=== PATIENT | male | born 1950 | race Caucasian/White ===

== ENCOUNTER → 2017-11-10 12:32 | Outpatient (CLI) | payer MEDICARE, SELFPAY ==
[2017-11-10 13:44] LABS: Prostate Specific Ag Screen 0.9 ng/mL (0.0-4.0)
== END ==
PROVIDERS: Visit Provider Urology
DX: Z12.5 Encounter for screening for malignant neoplasm of prostate (principal); N40.0 Benign prostatic hyperplasia without lower urinary tract symptoms
CPT/HCPCS: 36415; G0103

== ENCOUNTER → 2018-11-09 12:00 | Outpatient (CLI) | payer MEDICARE, SELFPAY ==
[2018-11-09 18:22] LABS: Prostate Specific Ag, Diagnost 0.82 ng/mL (0.0-4.0)
== END ==
PROVIDERS: Visit Provider Urology
DX: Z12.5 Encounter for screening for malignant neoplasm of prostate (principal); N52.9 Male erectile dysfunction, unspecified; N40.0 Benign prostatic hyperplasia without lower urinary tract symptoms
CPT/HCPCS: 36415; 84153

== ENCOUNTER → 2019-11-15 12:20 | Outpatient (CLI) | payer MEDICARE, SELFPAY ==
[2019-11-15 15:05] LABS: Prostate Specific Ag Screen 0.9 ng/ml (0.0-4.0)
== END ==
PROVIDERS: Visit Provider Urology
DX: Z12.5 Encounter for screening for malignant neoplasm of prostate (principal)
CPT/HCPCS: 36415; G0103

== ENCOUNTER → 2020-01-06 09:46 | Outpatient (CLI) | payer MEDICARE, SELFPAY | PROVIDERS: PCP Family Medicine; Visit Provider Family Medicine | DX: R00.2 Palpitations (principal); R41.0 Disorientation, unspecified; R47.01 Aphasia | CPT/HCPCS: 93270 ==

== ENCOUNTER → 2020-01-09 14:39 | Outpatient (CLI) | payer MEDICARE, SELFPAY ==
[2020-01-09 16:24] LABS: Blood Urea Nitrogen 11 mg/dl (9-20); Estimated Glomerular Filt Rate 83 ml/min (>60); GFR (African American) 101 ML/MIN (>60)
== END ==
PROVIDERS: Visit Provider Family Medicine
DX: Z01.818 Encounter for other preprocedural examination (principal)
CPT/HCPCS: 36415; 82565; 84520

== ENCOUNTER → 2020-01-12 12:15 | Outpatient (CLI) | payer MEDICARE, SELFPAY ==
--- NOTE | 2020-01-12 12:19 | MR_ITS ---
PROCEDURE: MR HEAD/BRAIN WO/W CON CLINICAL INDICATION: APHASIA HX PITUITARY GLAND TUMOR REMOVED 2010. HX RADIATION. EPISODES OF ZONING OUT NOT ABLE TO SPEAK. COMPARISON: MR [facility] MRI-BRAIN W/WO from 03/12/2016 TECHNIQUE: Routine multiplanar multi echo sequences are performed without and with gadolinium enhancement. FINDINGS: No midline shift, mass effect, intracranial hemorrhage, or hydrocephalus is evident. There is generalized atrophy with nonspecific periventricular and basal ganglia T2 hyperintensities. The cerebellopontine angles, cerebellum, and brainstem have an unremarkable appearance. No evidence of acute infarction. The sella turcica is enlarged as before with postsurgical changes. No enhancing lesions are evident. No mastoid effusion or sinus air-fluid level. IMPRESSION: No change with no acute intracranial findings. Postsurgical changes with enlargement of the sella turcica. Dictated by: Mc Bautista MD 01/13/2020 12:29 Mc Bautista MD in [place] 01/13/2020 12:29
== END ==
PROVIDERS: PCP Family Medicine; Visit Provider Family Medicine
DX: R47.01 Aphasia (principal)
CPT/HCPCS: 70553; A9576

== ENCOUNTER → 2020-07-02 15:03 | Outpatient (CLI) | payer MEDICARE, SELFPAY ==
[2020-07-02 15:30] LABS: Basophils % 0.5 % (0.1-2.0); Eosinophils # 0.1 K/mm3 (0.0-0.4); Eosinophils % 0.9 % (0.1-12.0); Hematocrit 52.6 % (42.0-52.0); Hemoglobin 17.5 g/dL (14.1-18.0); Lymphocytes # 1.1 K/mm3 (0.7-4.5); Lymphocytes % 14.2 % (10-50); Mean Corpuscular HGB Conc 33.3 g/dL (31.8-35.4); Mean Corpuscular Hemoglobin 30.8 pg (27.0-31.2); Mean Corpuscular Volume 92.4 fl (80-94); Mean Platelet Volume 7.8 fl (7.4-10.4); Monocytes # 0.3 K/mm3 (0.1-1.0); Monocytes % 3.8 % (1.7-9.3); Neutrophils # 6.3 K/mm3 (1.8-7.8); Neutrophils % 80.7 % (37.0-80.0); Platelet Count 211 K/mm3 (142-424); Red Blood Count 5.69 M/mm3 (4.60-6.20); Red Cell Distribution Width 13.8 % (11.5-17.5); White Blood Count 7.7 K/mm3 (4.8-10.8)
[2020-07-02 21:37] LABS: Chloride 105 mmol/L (98-107); Sodium 138 mmol/L (136-145)
[2020-07-02 21:38] LABS: Potassium 4.7 mmoL/L (3.5-5.1)
[2020-07-02 21:40] LABS: Alanine Aminotransferase 17 U/L (12-78); Albumin Level 4.5 g/dl (3.5-5.0); Albumin/Globulin Ratio 1.7 (1.1-1.8); Alkaline Phosphatase 59 U/L (38-126); Anion Gap 12.7 mEq/L (5-15); Aspartate Amino Transferase 22 U/L (17-59); Bilirubin,Total 0.7 mg/dl (0.2-1.3); Blood Urea Nitrogen 11 mg/dl (9-20); Carbon Dioxide 25 mmol/L (22.0-30.0); Estimated Glomerular Filt Rate 95 ml/min (>60); GFR (African American) 115 ML/MIN (>60); Globulin 2.6 g/dL (1.3-3.2); Total Protein,Serum 7.1 g/dl (6.3-8.2)
[2020-07-02 21:41] LABS: Calcium 9.3 mg/dl (8.4-10.2); Glucose 110 mg/dl (74-100)
[2020-07-02 21:57] LABS: Free T4 (Free Thyroxine) 1.16 ng/dl (0.78-2.19)
[2020-07-07 18:14] LABS: Testosterone, Total, LC/MS 346.6 ng/dL (264.0-916.0); Testosterone,Free 2.6 pg/mL (6.6-18.1)
== END ==
PROVIDERS: Visit Provider Internal Medicine Endocrinology, Diabetes & Metabolism
DX: D35.2 Benign neoplasm of pituitary gland (principal)
CPT/HCPCS: 36415; 80053; 84402; 84403; 84439; 85025

== ENCOUNTER → 2020-11-20 11:47 | Outpatient (CLI) | payer MEDICARE, SELFPAY ==
[2020-11-20 14:20] LABS: Prostate Specific Ag Screen 1.1 ng/ml (0.0-4.0)
== END ==
PROVIDERS: Visit Provider Urology
DX: Z12.5 Encounter for screening for malignant neoplasm of prostate (principal)
CPT/HCPCS: 36415; G0103

== ENCOUNTER 2023-04-22 12:21 | Emergency (ER) | payer MEDICARE, SELFPAY ==
--- NOTE | 2023-04-22 12:23 | XR_ITS ---
FINAL REPORT CLINICAL HISTORY: Right knee pain COMPARISON: None FINDINGS: Three views of the right knee were obtained. There is no acute fracture or dislocation. There are small osteophytes along the undersurface of the patella. There is sharpening of the tibial spines. There is no soft tissue abnormality. IMPRESSION: Mild changes of osteoarthritis without acute fracture Reviewed, Interpreted and Dictated by Brendon Hoffman MD Transcribed by Sera Thurman Authenticated and [facility]
[2023-04-22 12:40] VITALS: BP 139/88; PULSE 78; RESP 19; TEMP 36.8; O2SAT 98; BMI 42.7
--- NOTE | 2023-04-22 13:00 | ED_ITS ---
Discharge Plan Disposition Patient Disposition: Home, Self-Care Condition: Good Prescriptions Prescriptions: No Action testosterone 30 mg/actuation (1.5 mL) solution in metered pump w/juan 3 applic TOPICAL DAILY hydrocortisone 10 mg tablet 10 mg PO TID aspirin [Adult Aspirin Regimen] 81 mg tablet,delayed release (DR/EC) 81 mg PO DAILY levothyroxine 75 mcg capsule 75 mcg PO DAILY levetiracetam 750 mg tablet 750 mg PO BID Referrals Follow up/Referrals: Anthony Chan MD [Primary Care Provider] - See instructions Activity Restrictions/Add. Instructions Additional Instructions/Restrictions: *weight bearing as tolerated *Elevate when resting? *Ibuprofen 600-800mg every 6-8 hours as needed for pain an inflammation if you can take it. If need something more can take Tylenol in between doses of Ibuprof en to help Immediately follow up with your family doctor for new or worsening of symptoms, or no noticeable improvement over the next 3-5 days for further testing and evaluation Clinical Impressions Clinical Impression: Knee pain Qualifiers: Chronicity: unspecified Laterality: right Qualified Code(s): M25.561 - Pain in right knee Instructions Patient Instructions: DI for Knee Pain Discharge ED Provider: Gabby Ross [facility] General Stated complaint: right knee pain Mode of Arrival: Ambulatory Source of Information: Patient Limitations: No Limitations Time Seen by Provider: 04/22/23 13:00 Description of Symptoms (Recalled from Triage Doc. by RN): PATIENT C/O PAIN TO RIGHT KNEE X 2 DAYS, NO KNOWN INJURY HEENT Symptoms (Recalled from RN notes): No Resp Symptoms (Recalled from RN notes): No Skin Symptoms (Recalled from RN notes): No MS Symptoms (Recalled from RN notes): Yes Functional Status (Recalled from RN notes): WNL History of Present Illness Provider Complaint: Patient states that he woke up a couple days ago having pain in his right knee when he would walk States that he is able to move and bend the leg without pain but when he walks his knee hurts so today he came in to get it checked Related Data Home Medications Medication Instructions Recorded Confirmed levothyroxine 75 mcg capsule 75 mcg PO DAILY 11/10/17 04/22/23 aspirin 81 mg tablet,delayed 81 mg PO DAILY 11/20/20 04/22/23 release (Adult Aspirin Regimen) hydrocortisone 10 mg tablet 10 mg PO TID 11/20/20 04/22/23 testosterone 30 mg/actuation (1.5 3 applic topical DAILY 11/20/20 04/22/23 mL) transderm solution metered pump levetiracetam 750 mg tablet 750 mg PO BID 10/09/21 04/22/23 Allergies Allergy/AdvReac Type Severity Reaction Status Date / Time No Known Allergies Allergy Verified 12/03/21 15:41 Worker's Comp Is this a Worker's Comp case?: No [facility] Disclaimer: The information contained in this section may have been updated after the patient was seen, as this information can be updated by other users. Medical History (Updated 04/22/23 @ 14:24 by Gabby Ross APRN) BPH (benign prostatic hyperplasia) BPH (benign prostatic hyperplasia) Social History Smoking Status: Never smoker alcohol intake: never substance use type: denies use current occupational status: retired Travel in the last 8 weeks: None household members: spouse housing: house ROS Obtained: Yes All systems reviewed & no additional complaints except as documented and Yes Systems reviewed as appropriate & no additional complaints except as documented ENT Ears, Nose, Mouth, and Throat: Reports system reviewed and no additional complaints, except as documented and Reports as per HPI Cardiovascular Cardiovascular: Reports system reviewed and no additional complaints, except as documented and Reports as per HPI Respiratory Respiratory: Reports system reviewed and no additional complaints, except as documented and Reports as per HPI Gastrointestinal Gastrointestingal: Reports system reviewed and no additional complaints, except as documented Musculoskeletal Musculoskeletal: Reports system reviewed and no additional complaints, except as documented, Reports as per HPI and Reports other Comments: Pain in right knee with walking x 2 days denies known injury Physical Exam General General appearance: alert and in no apparent distress ENT ENT exam: Present mucous membranes moist Respiratory Respiratory exam: Present normal lung sounds bilaterally; Absent respiratory distress or wheezes Cardiovascular Cardiovascular exam: Present regular rate, normal rhythm and normal heart sounds Expanded Lower Extremity Exam Right: Knee exam: Absent tenderness, swelling, ecchymosis or erythema Lower leg exam: Present normal inspection Ankle exam: Present normal inspection Neurological Exam Neurological exam: Present alert, oriented X3 and normal gait Medical Decision Making Dinesh Inquiry Pt receiving controlled substance: No Dinesh was queried for this patient: No Vital Signs: 04/22/23 12:40 Temperature 98.3 F Temperature Source Oral Pulse Rate [Left Brachial] 78 Respiratory Rate 19 Blood Pressure [Left Arm] 139/88 Blood Pressure Mean [Left Arm] 105 Blood Pressure Source [Left Arm] Automatic Cuff Blood Pressure Position [Left Arm] Sitting 02 Sat by Pulse Oximetry 98 Oxygen Delivery Method Room Air Lab Data Lab results reviewed: Yes I reviewed the patient's lab results. Orders (Tests/Meds): ORDERS Category Date Time Status XR knee RT 3V Stat Exams 04/22/23 12:23 Taken Radiology Data #1: Image(s): Knee Image Reviewed: Yes I have reviewed radiologist's interpretation Mild changes of oseoarthritis without acute fracture
[2023-04-22 14:20] LABS: Uric Acid 5.8 mg/dl (3.5-8.5)
[2023-04-22 14:24] VITALS: BP 139/88; PULSE 78; RESP 19; TEMP 36.8; O2SAT 98
== END 2023-04-22 14:29 | disposition home or self-care (01) ==
PROVIDERS: Emergency Provider Nurse Practitioner; PCP Family Medicine
DX: M25.561 Pain in right knee (principal)
CPT/HCPCS: 73562; 84550; 99204; 99212; G0463

== ENCOUNTER 2024-11-22 22:11 | Emergency (ER) | payer MEDICARE, SELFPAY ==
--- OUTSIDE RECORDS SUMMARY | 2024-10-05 15:45 | XMS_ITS | Encounter Summary ---
[facility] Address [address] [place] [address] Care Team Providers Care Cut Off Worker Name Role Phone Anthony Chan MD Primary Care Provider + Reason for Visit * Reason Comments Pituitary Problem Hypopituitarism Hypogonadism Hypogonadotropic Hypothyroidism Acquired Encounter Details Date Type Department Care Team (Late st Contact Info) Description 10/05/2024 3:45 PM EDT Office Visit [facility] [address] [phone] Callum Cole MD [address] [address] Hypopituitarism (Primary Dx); Acquired hypothyroidism; Hypogonadotropic hypogonadism Social History Tobacco Use Types Packs/Day Years Used Date Smoking Tobacco: Never Passive Smoke Exposure: Never Smokeless Tobacco: Never Tobacco Cessation:Counseling Given: No Alcohol Use Standard Drinks/Week Comments No 0 (1 standard drink = 0.6 oz pur e alcohol) PHQ-2 Answer Date Recorded Retired PHQ-9: Brief Depression Severity Measure Score 0 05/20/2022 PHQ-2 Answer Date Recorded Patient Health Questionnaire-2 Score 1 08/23/2024 Sex and Gender Information Value Date Recorded Sex Assigned at Not on file Legal Sex Male 1:19 PM EDT Gender Identity Not on file Sexual Orientation Not on file documented as of this encounter Last Filed Vital Signs Vital Sign Reading Time Taken Comments Blood Pressure 124/80 10/05/2024 3:35 PM EDT Pulse 90 10/05/2024 3:35 PM EDT Temperature - - Respiratory Rate - - Oxygen Saturation 97% 10/05/2024 3:35 PM EDT Inhaled Oxygen Concentration - - Weight 131 kg (288 lb) 10/05/2024 3:35 PM EDT Height 177.8 cm (5' 10 ) 10/05/2024 3:35 PM EDT Body Mass Index 41.32 10/05/2024 3:35 PM EDT documented in this encounter Progress Notes * Callum Cole MD - 10/05/2024 4:09 PM EDTAssociated Problem(s): Hypopituitarism Continue hydrocortisone therapy. We discussed sick day rules today. We discussed wearing medicalert jewelry. Check CMP, PRL, IGF-1 today. * Callum Cole MD - 10/05/2024 4:07 PM EDTAssociated Problem(s): Hypogonadotropic hypogonadism Continue topical testosterone. Check T levels today. Controlled substance agreement was signed today. * Callum Cole MD - 10/05/2024 4:07 PM EDTAssociated Problem(s): Acquired hypothyroidism Continue levothyroxine. Check free T4 today. TSH isn't reliable due to pituitary disease. * Callum Cole MD - 10/05/2024 3:45 PM EDT Images from the original note were not included. Office Note Date: 10/05/2024 Patient Name: Laurent Man : 1950 Chief Complaint Patient presents with Pituitary Problem Hypopituitarism Hypogonadism Hypogonadotropic Hypothyroidism Acquired History of Present Illness: Laurent Man is a 74 y.o. male who presents for Pituitary Problem (Hypopituitarism), Hypogonadism (Hypogonadotropic), and Hypothyroidism (Acquired) He remains on the topical testosterone. He is using 6 squirts topically (axillary) daily. Weight has been stable. Energy level is okay. He denies any urinary complaints. He denies any cardiovascular complaints. He remains on the T4 88mcg qd. He is taking this correctly. He isn't taking any interfering meds concurrently. He denies any sxs of hypo- or hyperthyroidism at this time. He remains on hydrocortisone 20mg AM and 10mg PM. He has felt okay on this. He denies any orthostatic sxs. Pituitary tumor - s/p TSH 03/09; s/p XRT 06/08 Subjective Review of Systems: Review of Systems Constitutional: Negative. Cardiovascular: Negative. Gastrointestinal: Negative. Endocrine: Negative. The following portions of the patient's history were reviewed and updated as appropriate: allergies, current medications, past family history, past medical history, past social history, past surgicalhistory, and problem list. Objective Visit Vitals BP 124/80 (BP Location: Left arm, Patient Position: Sitting, Cuff Size: Adult) Pulse 90 Ht 177.8 cm (70 ) Wt 131 kg (288 lb) SpO2 97% BMI 41.32 kg/m?? Physical Exam: Physical Exam Constitutional: Appearance: Normal appearance. Neurological: Mental Status: He is alert. Labs: TSH No results found for: TSHBASE Free T4 Free T4 Date Value Ref Range Status 09/09/2023 1.12 0.92 - 1.68 ng/dL Final T3 No results found for: P4RVUOX TPO No results found for: THYROIDAB TG AB No results found for: THGAB TG No results found for: THYROGLB CBC w/DIFF Lab Results Component Value Date WBC 8.32 09/09/2023 RBC 6.23 (H) 09/09/2023 HGB 18.1 (H) 09/09/2023 HCT 53.6 (H) 09/09/2023 MCV 86.0 09/09/2023 MCH 29.1 09/09/2023 MCHC 33.8 09/09/2023 RDW 14.2 09/09/2023 RDWSD 43.7 09/09/2023 MPV 10.9 09/09/2023 PLT 239 09/09/2023 NEUTRORELPCT 68.1 03/17/2017 LYMPHORELPCT 21.1 (L) 03/17/2017 MONORELPCT 8.8 03/17/2017 EOSRELPCT 1.6 03/17/2017 BASORELPCT 0.2 03/17/2017 AUTOIGPER 0.2 03/17/2017 NEUTROABS 5.92 03/17/2017 LYMPHSABS 1.84 03/17/2017 MONOSABS 0.77 03/17/2017 EOSABS 0.14 03/17/2017 BASOSABS 0.02 03/17/2017 AUTOIGNUM 0.02 03/17/2017 NRBC 0.0 03/17/2017 Assessment / Plan Assessment & Plan: Diagnoses and all orders for this visit: 1. Hypopituitarism (Primary) Assessment & Plan: Continue hydrocortisone therapy. We discussed sick day rules today. We discussed wearing [employer] jewelry. Check CMP, PRL, IGF-1 today. Orders: - Comprehensive Metabolic Panel; Future - Insulin-like Growth Factor; Future - Prolactin; Future 2. Acquired hypothyroidism Assessment & Plan: Continue levothyroxine. Check free T4 today. TSH isn't reliable due to pituitary disease. Orders: - CBC (No Diff); Future - T4, Free; Future 3. Hypogonadotropic hypogonadism Assessment & Plan: Continue topical testosterone. Check T levels today. Controlled substance agreement was signed today. Orders: - Testosterone Free MS / Dialysis; Future Current Outpatient Medications Medication Instructions aspirin 81 mg, Daily BLACK ELDERBERRY PO Take by mouth. 1 po daily hydrocortisone (CORTEF) 10 MG tablet TAKE 2 TABLETS IN THE MORNING AND 1 TABLET IN THE EVENING levothyroxine (SYNTHROID, LEVOTHROID) 88 mcg, Oral, Daily Testosterone 120 mg, Other, Daily, Use 6 squirts topically daily. MUST KEEP APPOINTMENT FOR ADDITIONAL REFILLS Return in about 6 months (around 04/07/2025) for Recheck with CMP, free T4, testo. Electronically signed by: Callum Cole MD 10/05/2024 documented in this encounter Plan of Treatment Upcoming Encounters Date Type Department Care Team (Late st Contact Info) Description 02/27/2025 10:00 AM EST Office Visit [facility] [address] [place] [id number] Anthony Chan MD [address] [place] [address] 06/02/2025 11:30 AM EST Office Visit [facility] [address] [facility] [address] [place] [phone] Callum Cole MD [address] [facility] [address] [place] [address] documented as of this encounter Procedures Procedure Name Priority Date/Time Associated Diagnosis Comments TESTOSTERONE FREE MS/DIALYSIS Routine 10/05/2024 4:12 PM EDT Hypogonadotropic hypogonadism PROLACTIN Routine 10/05/2024 4:12 PM EDT Hypopituitarism INSULIN-LIKE GROWTH FACTOR Routine 10/05/2024 4:12 PM EDT Hypopituitarism CBC (NO DIFF) Routine 10/05/2024 4:12 PM EDT Acquired hypothyroidism T4, FREE Routine 10/05/2024 4:12 PM EDT Acquired hypothyroidism COMPREHENSIVE METABOLIC PANEL Routine 10/05/2024 4:12 PM EDT Hypopituitarism documented in this encounter Results * Prolactin (10/05/2024 4:12 PM EDT) Prolactin 12.20 4.04 - 15.20 ng/mL 10/06/2024 2:12 AM EDT [facility] Blood Venipuncture / Unknown 10/05/2024 4:12 PM EDT 10/05/2024 4:12 PM EDT Narrative [facility] - 10/06/2024 2:12 AM EDT Results may be falsely decreased if patient taking Biotin. Callum Cole MD LAB BLOOD ORDERABLES Grecia l Result [facility]
[address] [place] [address], [place] [phone] * (ABNORMAL) Insulin-like Growth Factor (10/05/2024 4:12 PM EDT) Insulin-Like Growth Factor-1 38(L) 45 - 207 ng/mL 10/13/2024 7:09 AM EDT [facility] Blood Venipuncture / Unknown 10/05/2024 4:12 PM EDT 10/05/2024 4:12 PM EDT Narrative [facility] - 10/13/2024 7:09 AM EDT Performed at: 01 - [address] [id number] Couture Dressmaker: Lee Ann Carpenter MD, Phone: [phone] Callum Cole MD LAB BLOOD ORDERABLES Grecia l Result Performing Organization Address City/[facility]/ZIP Co de Phone Number [facility] [address] [place] [address], [place] [phone] * Testosterone Free MS / Dialysis (10/05/2024 4:12 PM EDT) Testosterone, Total 422 ng/dL 10/11 10:10 AM EDT [facility] Comment: This test was developed and its performance characteristics determined by [facility]. It has not been cleared or approved by the Food and Drug Administration. Reference Range: Adult Males >18 years 264 916 This [facility] LC/MS-MS method is currently certified by the CDC Hormone Standardization Program (HoST). Adult male reference interval is based on a population of healthy nonobese males (BMI <30) between 19 and 39 years old. pramod Watters.al. JCEM 2017,102;1728-1322 PMID: [id number]. Testosterone, Free % 1.8 % 09/27 10:10 AM EDT [facility] Comment: This test was developed and its performance characteristics determined by [facility]. It has not been cleared or approved by the Food and Drug Administration. Reference Range: Adult Males: 1.5 - 3.2 Testosterone, Free 76 pg/mL 2024 10:10 AM EDT [facility] Comment: Reference Range: Adult Males: 52 - 280 Blood Structure of left upper limb / Unknown Venipuncture / Unknown 10/05/2024 4:12 PM EDT 10/05/2024 4:12 PM EDT Narrative [facility] - 10/11/2024 10:10 AM EDT Performed at: [facility] [address] [place] [id number] Couture Dressmaker: Malik Miranda MD, Phone: [phone] Callum Cole MD LAB BLOOD ORDERABLES Grecia l Result [facility] [address] [place] [address], [place] [phone] * T4, Free (10/05/2024 4:12 PM EDT) Free T4 0.97 0.92 - 1.68 ng/dL 10/06/2024 2:12 AM EDT [facility] Blood Venipuncture / Unknown 10/05/2024 4:12 PM EDT 10/05/2024 4:12 PM EDT Callum Cole MD LAB BLOOD ORDERABLES Grecia l Result [facility]
[address] [place] [address], [place] [phone] * (ABNORMAL) CBC (No Diff) (10/05/2024 4:12 PM EDT) WBC 8.93 3.40 - 10.80 10*3/mm3 10/06/2024 1:50 AM EDT [facility] RBC 6.23(H) 4.14 - 5.80 10*6/mm3 10/06/2024 1:50 AM EDT [facility] Hemoglobin 19.0(H) 13.0 - 17.7 g/dL 10/06/2024 1:50 AM EDT [facility] Hematocrit 56.0(H) 37.5 - 51.0 % 10/06/2024 1:50 AM EDT [facility] MCV 89.9 79.0 - 97.0 fL 10/06/2024 1:50 AM EDT [facility] MCH 30.5 26.6 - 33.0 pg 10/06/2024 1:50 AM EDT [facility] MCHC 33.9 31.5 - 35.7 g/dL 10/06/2024 1:50 AM EDT [facility] RDW 14.0 12.3 - 15.4 % 10/06/2024 1:50 AM EDT [facility] RDW-SD 45.4 37.0 - 54.0 fl 10/06/2024 1:50 AM EDT [facility] MPV 10.4 6.0 - 12.0 fL 10/06/2024 1:50 AM EDT [facility] Platelets 243 140 - 450 10*3/mm3 10/06/2024 1:50 AM EDT [facility] Blood Venipuncture / Unknown 10/05/2024 4:12 PM EDT 10/05/2024 4:12 PM EDT Callum Cole MD LAB BLOOD ORDERABLES Grecia ashley Result [facility]
[address] [place] [address], * (ABNORMAL) Comprehensive Metabolic Panel (10/05/2024 4:12 PM EDT) [facility] Glucose 103(H) 65 - 99 mg/dL 10/06/2024 2:06 AM [facility] BUN 9.0 8.0 - 23.0 mg/dL 10/06/2024 2:06 AM [facility] Creatinine 1.09 0.76 - 1.27 mg/dL 10/06/2024 2:06 AM [facility] Sodium 136 136 - 145 mmol/L 10/06/2024 2:06 AM [facility] Potassium 4.1 3.5 - 5.2 mmol/L 10/06/2024 2:06 AM [facility] Chloride 104 98 - 107 mmol/L 10/06/2024 2:06 AM [facility] CO2 21.3(L) 22.0 - 29.0 mmol/L 10/06/2024 2:06 AM [facility] Calcium 9.3 8.6 - 10.5 mg/dL 10/06/2024 2:06 AM [facility] Total Protein 7.1 6.0 - 8.5 g/dL 10/06/2024 2:06 AM [facility] Albumin 3.8 3.5 - 5.2 g/dL 10/06/2024 2:06 AM [facility] ALT (SGPT) 15 1 - 41 U/L 10/06/2024 2:06 AM [facility] AST (SGOT) 18 1 - 40 U/L 10/06/2024 2:06 AM [facility] Alkaline Phosphatase 59 39 - 117 U/L 10/06/2024 2:06 AM [facility] Total Bilirubin 0.8 0.0 - 1.2 mg/dL 10/06/2024 2:06 AM [facility] Globulin 3.3 gm/dL 10/06/2024 2:06 AM [facility] A/G Ratio 1.2 g/dL 10/06/2024 2:06 AM EDT [facility] BUN/Creatinine Ratio 8.3 7.0 - 25.0 10/06/2024 2:06 AM EDT [facility] Anion Gap 10.7 5.0 - 15.0 mmol/L 10/06/2024 2:06 AM EDT [facility] eGFR 70.3 >60.0 mL/min/1.7 3 10/06/2024 2:06 AM EDT [facility] Blood Venipuncture / Unknown 10/05/2024 4:12 PM EDT 10/05/2024 4:12 PM EDT Narrative [facility] - 10/06/2024 2:06 AM EDT GFR Categories in Chronic Kidney Disease (CKD) GFR Category GFR (mL/min/1.73) Interpretation G1 90 or greater Normal or high (1) G2 60-89 Mild decrease (1) G3a 45-59 Mild to moderate decrease G3b 30-44 Moderate to severe decrease G4 15-29 Severe decrease G5 14 or less Kidney failure (1)In the absence of evidence of kidney disease, neither GFR category G1 or G2 fulfill the criteria for CKD. eGFR calculation 2020 CKD-EPI creatinine equation, which does not include race as a factor Callum Cole MD LAB BLOOD ORDERABLES Grecia l Result [facility]
[address] [place] [address], documented in this encounter Visit Diagnoses Diagnosis Hypopituitarism- Primary Panhypopituitarism Acquired hypothyroidism Unspecified hypothyroidism Hypogonadotropic hypogonadism Other anterior pituitary disorders documented in this encounter Additional Health Concerns Assessment Noted Time PHQ-2 Depression Total Score: 1 08/18/19 24 9:57 AM EDT documented as of this encounter Care Teams Cut Off Worker Relationship Specialty Start Date End Date Anthony Chan MD PCP - General Family Medicine 08/04/16 documented as of this encounter
[2024-11-22] VITALS (10 sets, daily range): BP systolic 137–156; BP diastolic 75–91; PULSE 65–74; RESP 16; TEMP 36.4–37.2; O2SAT 92–98; BMI 39.0
--- OUTSIDE RECORDS SUMMARY | 2024-11-22 22:20 | XMS_ITS | Encounter Summary ---
[facility] Address [address] [place] [address] Care Team Providers Care Qa Architect Name Role Phone Anthony Chan MD Primary Care Provider + Reason for Visit * Reason Onset Date Comments Med Refill 11/07/2024 Encounter Details Date Type Department Care Team (Late st Contact Info) Description 11/07/2024 Refill [facility] [address] [phone] Callum Cole MD [address] [address] Social History Tobacco Use Types Packs/Day Years Used Date Smoking Tobacco: Never Passive Smoke Exposure: Never Smokeless Tobacco: Never Alcohol Use Standard Drinks/Week Comments No 0 [...] on file documented as of this encounter Miscellaneous Notes * Telephone Encounter - Ron Taylor MA - 11/07/2024 11:01 AM EDT Rx Refill Note Requested Prescriptions No prescriptions requested or ordered in this encounter Last office visit with prescribing clinician: 10/05/2024 Next office visit with prescribing clinician: 06/02/2025 Ron Taylor MA 11/07/24, 11:01 EDT * Telephone Encounter - Ron Taylor MA - 11/07/2024 11:01 AM EDT Patient came into office requesting refillon his hydrocortisone sent to [facility] in [place]. Rx pended. documented in this encounter Plan of Treatment Upcoming Encounters Date Type Department Care Team (Late st Contact Info) Description 02/27/2025 10:00 AM EST Office Visit [facility] [address] [place] [address] Anthony Chan MD [address] [place] [address] 06/02/2025 11:30 AM EST Office Visit [facility] [address] [phone] Callum Cole MD [address] [phone] documented as of this encounter Visit Diagnoses Not on filedocumented in this encounter Additional Health Concerns Assessment Noted Time PHQ-2 Depression Total Score: 1 08/18/19 24 9:57 AM EDT documented as of this encounter Care Teams Qa Architect Relationship Specialty Start Date End Date Anthony Chan MD PCP - General Family Medicine 08/04/16 documented as of this encounter
--- OUTSIDE RECORDS SUMMARY | 2024-11-22 22:20 | XMS_ITS | Encounter Summary ---
[facility] Organization [facility] Address [address] [place] [address] Care Team Providers Care Account Support Specialist Name Role Phone Anthony Chan MD Primary Care Provider + Encounter Details Date Type Department Care Team ([facility] st Contact Info) Description 09/12/2024 Telephone [facility] ENDOCRINOLOGY [address] [phone] Callum Cole MD [address] [address] Social History Tobacco Use Types Packs/Day Years Used Date Smoking Tobacco: Never Smokeless Tobacco: Never Alcohol Use Standard [...] encounter Miscellaneous Notes * Telephone Encounter - Aurea Barajas MA - 09/12/2024 11:08 AM EDT Spoke with [facility] and verified rx. Patient notified. * Telephone Encounter - Pj Mendieta PCT - 09/12/2024 9:23 AM EDT PT CAME INTO THE OFFICE. HE SHOWED ME A TEXT HE RECEIVED FROM [facility]. THEY WILL NOT DISPENSE HIS TESTOSTERONE UNTIL WE REACH OUT TO THEM. PT SEEMED VERY WORRIED. HE REQUESTED WE LOOK INTO THIS AND REACH OUT TO HIM. PT CAME BACK INTO THE OFFICE. HE STATED WE MIGHT BE ABLE TO SEND RX IN TO [facility] IN [place], [place] IF [facility] WILL NOT FILL RX. documented in this encounter Plan of Treatment Upcoming Encounters Date Type Department Care Team (Late st Contact Info) Description 02/27/2025 10:00 AM EST Office Visit [facility] FAMILY MEDICINE [address] [place] [address] Anthony Chan MD [address] [place] [address] 06/02/2025 11:30 AM EST Office Visit [facility] ENDOCRINOLOGY [address] [phone] Callum Cole MD [address] [address] documented as of this encounter Visit Diagnoses Not on filedocumented in this encounter Additional Health Concerns Assessment Noted Time PHQ-2 Depression Total Score: 1 08/18/19 24 9:57 AM EDT documented as of this encounter Care Teams Account Support Specialist Relationship Specialty Start Date End Date Anthony Chan MD PCP - General Family Medicine 08/04/16 documented as of this encounter
--- OUTSIDE RECORDS SUMMARY | 2024-11-22 22:20 | XMS_ITS | Clinical Summary ---
Author Organization [facility] Address [address] [place] [address] Care Team Providers Care Wiping Cloth Cutter Name Role Phone Anthony Chan MD Primary Care Provider + Allergies No known active allergies Medications aspirin 81 MG chewable tablet Chew 1 tablet Daily. Active BLACK ELDERBERRY PO Take by mouth. 1 po daily Active levothyroxine (SYNTHROID, LEVOTHROID) 88 MCG tablet Take 1 tablet by mouth Daily. 90 tablet 3 4 Active Testosterone 30 MG/ACT solutionIndica tions:Hypogona dotropic hypogonadism,P ituitary adenoma 120 mg by Other route Daily. Use 6 squirts topically daily. MUST KEEP APPOINTMENT FOR ADDITIONAL REFILLS 270 mL 1 5 Active hydrocortisone (CORTEF) 10 MG tablet TAKE 2 TABLETS IN THE MORNING AND 1 TABLET IN THE EVENING 100 tablet 3 5 Active hydrocortisone (CORTEF) 10 MG tablet TAKE 2 TABLETS IN THE MORNING AND 1 TABLET IN THE EVENING 100 tablet 3 5 11/08/19 25 Discontin ued(Reord er) Active Problems Problem Noted Date Diagnosed Date Mood disorder 10/23/2021 Acquired hypothyroidism 08/15/2021 Assessment & Plan (10/05/2024 4:07 PM EDT): Continue levothyroxine. Check free T4 today. TSH isn't reliable due to pituitary disease. Assessment & Plan (09/09/2023 11:29 AM EDT): Continue T4 tx. Check free T4 level. Assessment & Plan (09/02/2022 11:31 AM EDT): Continue T4 tx. Check free T4 level today. Will send note about results. Assessment & Plan (03/04/2022 11:42 AM EST): Continue T4 tx. Check free T4. Assessment & Plan (09/02/2021 2:30 PM EDT): Recent free T4 was normal. 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 We discussed sick day rules today. We discussed wearing medicalert jewelry. Check CMP, PRL, IGF-1 today. Assessment & Plan (09/09/2023 11:28 AM EDT): Continue hydrocortisone treatment. Assessment & Plan (03/04/2023 11:38 AM EST): Continue hydrocortisone treatment. Reviewed sick day rules. Continue T4 tx. Check free T4 level today. Assessment & Plan (09/02/2022 11:31 AM EDT): Continue hydrocortisone. Assessment & Plan (03/04/2022 11:42 AM EST): Continue hydrocortisone. Discussed sick day rules again today. Assessment & Plan (09/02/2021 2:32 PM EDT): On replacement with hydrocortisone, levothyroxine and testosterone. Assessment & Plan (11/01/2020 12:14 PM EDT): Continue T4 and hydrocortisone. 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 Check T levels today. Controlled substance agreement was signed today. Assessment & Plan (09/09/2023 11:28 AM EDT): Continue testo treatment. Check testo level today. Controlled substance agreement was signed. Assessment & Plan (03/04/2023 11:38 AM EST): Continue T replacement. Check T levels today. Assessment & Plan (09/02/2022 11:30 AM EDT): Continue topical testo. Check testo levels today. Controlled substance agreement was signed today. Assessment & Plan (03/04/2022 11:42 AM EST): Continue topical testosterone. Check T levels. Assessment & Plan (09/02/2021 2:47 PM EDT): Recent testo levels okay. Continue current tx. Controlled substance agreement was signed today. Assessment & Plan (11/01/2020 12:15 PM EDT): Testo levels are okay. H/H a bit elevated. Will continue to monitor this. Controlled substance agreement was signed today. Erythrocytosis 11/01/2020 Assessment & Plan (03/04/2023 11:38 AM EST): Check CBC today. Assessment & Plan (09/02/2022 11:30 AM EDT): Plan to check CBC next visit. Assessment & Plan (09/02/2021 2:38 PM EDT): H and H are still a bit elevated. Will continue to monitor but may require therapeutic phlebotomy if this doesn't improve. We discussed doing regular blood donations to see if this helps. Pituitary adenoma 08/04/2016 Assessment & Plan (03/04/2022 11:45 AM EST): S/p TSS and XRT Assessment & Plan (09/02/2021 2:31 PM EDT): History of hypophysectomy and XRT. Resolved Problems Problem Noted Date Diagnosed Date Resolved Date Seizure disorder 08/15/2021 08/23/2024 Encounters Date Type Department Care Team Description 11/07/2024 Refill [facility] ENDOCRINOLOGY [address] [place] [address] Callum Cole MD 10/17/2024 Telephone [facility] ENDOCRINOLOGY [address] [place] [address] Callum Cole MD 10/06/2024 Results Follow-Up [facility] ENDOCRINOLOGY [address] [place] [address] Callum Cole MD 10/05/2024 3:45 PM EDT Office Visit [facility] ENDOCRINOLOGY [address] [place] [address] Callum Cole MD Hypopituitarism (Primary Dx); Acquired hypothyroidism; Hypogonadotropic hypogonadism 10/05/2024 Travel 09/12/2024 Telephone [facility] ENDOCRINOLOGY [address] [place] [address] Callum Cole MD 09/05/2024 Results Follow-Up [facility] FAMILY MEDICINE [address] [facility] [place] [address] Anthony Chan MD 09/05/2024 Refill [facility] ENDOCRINOLOGY [address] [place] [address] Callum Cole MD Hypogonadotropic hypogonadism; Pituitary adenoma 08/30/2024 Refill [facility] ENDOCRINOLOGY [address] [place] [address] Callum Cole MD Hypogonadotropic hypogonadism; Pituitary adenoma 08/23/2024 10:15 AM EDT Office Visit [facility]ILY [facility] [address] [place] [address] Anthony Chan MD Medicare annual wellness visit, subsequent (Primary Dx); Annual physical exam; Colon cancer screening 08/23/2024 Travel from Last 3 Months Immunizations Immunization Administration Dates Next Due COVID-19 (MODERNA) 1st,2nd,3 rd Dose Monovalent 02/05/2021,05/31/2020,05/03/2020 COVID-19 (MODERNA) BIVALENT 12+YRS 01/14/2022 Fluzone (or Fluarix & Flulav al for VFC) >6mos 02/17/2023 Zostavax 02/02/2017 Family History Medical History Relation Name Comments No Known Problems Brother No Known Problems Daughter 1 Shanell No Known Problems Daughter 2 [place] Heart disease Father Heart disease Mother Parkinsonism Mother Allergies Sister No Known Problems Son 1 Art No Known Problems Son 2 Mayo Relation Name Status Comments Brother Alive Daughter 1 Shanell Alive Daughter 2 Magdalene Alive Father Alive Mother Sister Alive Son 1 Art Alive Son 2 Mayo Alive Social History Tobacco Use Types Packs/Day Years [...] on file Sexual Orientation Not on file Last Filed Vital Signs Vital Sign Reading Time Taken Comments Blood Pressure 124/80 10/05/2024 3:35 PM EDT Pulse 90 10/05/2024 3:35 PM EDT Temperature 36.4 C (97.5 F) 08/23/2024 10:02 AM EDT Respiratory Rate 18 08/23/2024 10:02 AM EDT Oxygen Saturation 97% 10/05/2024 3:35 PM EDT Inhaled Oxygen Concentration - - Weight 131 kg (288 lb) 10/05/2024 3:35 PM EDT Height 177.8 cm (5' 10 ) 10/05/2024 3:35 PM EDT Body Mass Index 41.32 10/05/2024 3:35 PM EDT Plan of Treatment Upcoming Encounters Date Type Department Care Team (Late st Contact Info) Description 02/27/2025 10:00 AM EST Office Visit [facility] FAMILY MEDICINE [address] [place] [phone] Anthony Chan MD [address] [place], [place] [phone] 06/02/2025 11:30 AM EST Office Visit [facility] ENDOCRINOLOGY [address] [facility] [address] [place] [phone] Callum Cole MD [address] [facility] [address] [place], [place] [phone] Health Maintenance Due Date Last Done Comments TDAP/TD VACCINES (1 - Tdap) 02/25/1967 COLON CANCER SCREENING 5 YEA R SIGMOIDOSCOPY 02/25/1993 COLONOSCOPY 02/25/1993 CT COLONOGRAPHY 02/25/1993 FECAL OCCULT BLOOD TEST 02/25/1993 FIT Testing (1 year) 02/25/1993 Pneumococcal Vaccine 50+ (1 of 1 - PCV) 02/25/1998 HEPATITIS C SCREENING 08/04/2016 ZOSTER VACCINE (2 of 3) 03/30/2017 02/02/2017 RSV Vaccine - Adults (1 - 1- dose 75+ series) 02/25/2023 COVID-19 Vaccine ( - 2023-2 5 season) 2023 01/14/2022, 02/05/2021, 05/31/2020, Additional history exists INFLUENZA VACCINE 12/28/2024 02/17/2023 ANNUAL WELLNESS VISIT 08/23/2025 08/23/2024 , 08/18/2023, 08/18/2023 COLOGUARD 08/30/2027 08/29/2024, 08/10/2018 COLORECTAL CANCER SCREENING 08/30/2027 Procedures Procedure Name Priority Date/Time Associated Diagnosis Comments PROLACTIN Routine 10/05/2024 4:12 PM EDT Hypopituitarism INSULIN-LIKE GROWTH FACTOR Routine 10/05/2024 4:12 PM EDT Hypopituitarism TESTOSTERONE FREE MS/DIALYSIS Routine 10/05/2024 4:12 PM EDT Hypogonadotropic hypogonadism T4, FREE Routine 10/05/2024 4:12 PM EDT Acquired hypothyroidism CBC (NO DIFF) Routine 10/05/2024 4:12 PM EDT Acquired hypothyroidism COMPREHENSIVE METABOLIC PANEL Routine 10/05/2024 4:12 PM EDT Hypopituitarism COLOGUARD Routine 08/29/2024 1:30 PM EDT Colon cancer screening from Last 3 Months Results * Testosterone Free MS / Dialysis (10/05/2024 4:12 PM EDT) Testosterone, Total 422 ng/dL 10/11 10:10 AM EDT [facility] Comment: This test was developed and its performance characteristics determined by [facility]. It has not been cleared or approved by the Food and Drug Administration. Reference Range: Adult Males >18 years 264 - 916 This [facility] LC/MS-MS method is currently certified by the CDC Hormone Standardization Program (HoST). Adult male reference interval is based on a population of healthy nonobese males (BMI <30) between 19 and 39 years old. Duong, et.al. JCEM 2017,102;7029-5844 PMID: [id number]. Testosterone, Free % 1.8 % 09/27 10:10 AM EDT [facility] Comment: This test was developed and its performance characteristics determined by [facility]. It has not been cleared or approved [...] - 10/11/2024 10:10 AM EDT Performed at: - [facility] [address] [place] [id number] City Engineer: Malik Miranda MD, Phone: [phone] Callum Cole MD LAB BLOOD ORDERABLES Grecia l Result Performing Organization Address City/[facility]/ZIP Co de Phone Number [facility] [address] [place] [address], [place] [phone] * Prolactin (10/05/2024 4:12 PM EDT) Pathologist [facility] Prolactin 12.20 4.04 - 15.20 ng/mL 10/06/2024 2:12 AM EDT [facility] Blood Venipuncture / Unknown 10/05/2024 4:12 PM EDT 10/05/2024 4:12 PM EDT Narrative [facility] - 10/06/2024 2:12 AM EDT Results may be falsely decreased if patient taking Biotin. Callum Cole MD LAB BLOOD ORDERABLES Grecia l Result Performing Organization Address [facility] Co de Phone Number [facility]
[address] [place] [address], * (ABNORMAL) Insulin-like Growth Factor (10/05/2024 4:12 PM EDT) Insulin-Like Growth Factor-1 38(L) 45 - 207 ng/mL 10/13/2024 7:09 AM EDT [facility] Blood Venipuncture / Unknown 10/05/2024 4:12 PM EDT 10/05/2024 4:12 PM EDT Narrative [facility] - 10/13/2024 7:09 AM EDT Performed at: 01 - [facility] [address] [id number] City Engineer: Lee Ann Carpenter MD, Phone: [phone] Callum Cole MD LAB BLOOD ORDERABLES Grecia dion Result [facility] [address] [place] [address], * (ABNORMAL) CBC (No Diff) (10/05/2024 4:12 PM EDT) WBC 8.93 3.40 - 10.80 10*3/mm3 10/06/2024 1:50 AM EDT [facility] RBC 6.23(H) 4.14 - 5.80 10*6/mm3 10/06/2024 1:50 AM EDT [facility] Hemoglobin 19.0(H) 13.0 - 17.7 g/dL 10/06/2024 1:50 AM EDT [facility] Hematocrit 56.0(H) 37.5 - 51.0 % 10/06/2024 1:50 AM EDT [facility] MCV 89.9 79.0 - 97.0 fL 10/06/2024 1:50 AM EDT [facility] MCH 30.5 26.6 - 33.0 pg 10/06/2024 1:50 AM EDT [facility] MCHC 33.9 31.5 - 35.7 g/dL 10/06/2024 1:50 AM EDT [facility] RDW 14.0 12.3 - 15.4 % 10/06/2024 1:50 AM EDT [facility] RDW-SD 45.4 37.0 - 54.0 fl 10/06/2024 1:50 AM EDT [facility] MPV 10.4 6.0 - 12.0 fL 10/06/2024 1:50 AM EDT [facility] Platelets 243 140 - 450 10*3/mm3 10/06/2024 1:50 AM EDT [facility] Blood Venipuncture / Unknown 10/05/2024 4:12 PM EDT 10/05/2024 4:12 PM EDT Callum Cole MD LAB BLOOD ORDERABLES Grecia l Result Performing Organization Address City/[facility]/ZIP Co de Phone Number [facility]
[address] [place] [address], * T4, Free (10/05/2024 4:12 PM EDT) Free T4 0.97 0.92 - 1.68 ng/dL 10/06/2024 2:12 AM EDT [facility] Blood Venipuncture / Unknown 10/05/2024 4:12 PM EDT 10/05/2024 4:12 PM EDT Callum Cole MD LAB BLOOD ORDERABLES Grecia l Result Performing Organization Address [facility] Co de Phone Number [facility]
[address] [place] [address], * (ABNORMAL) Comprehensive Metabolic Panel (10/05/2024 4:12 PM EDT) Glucose 103(H) 65 - 99 mg/dL 10/06/2024 2:06 AM EDT [facility] BUN 9.0 8.0 - 23.0 mg/dL 10/06/2024 2:06 AM EDT [facility] Creatinine 1.09 0.76 - 1.27 mg/dL 10/06/2024 2:06 AM EDT [facility] Sodium 136 136 - 145 mmol/L 10/06/2024 2:06 AM EDT [facility] Potassium 4.1 3.5 - 5.2 mmol/L 10/06/2024 2:06 AM EDT [facility] Chloride 104 98 - 107 mmol/L 10/06/2024 2:06 AM EDT [facility] CO2 21.3(L) 22.0 - 29.0 mmol/L 10/06/2024 2:06 AM [facility] Calcium 9.3 8.6 - 10.5 mg/dL 10/06/2024 2:06 AM [facility] Total Protein 7.1 6.0 - 8.5 g/dL 10/06/2024 2:06 AM [facility] Albumin 3.8 3.5 - 5.2 g/dL 10/06/2024 2:06 AM [facility] ALT (SGPT) 15 1 - 41 U/L 10/06/2024 2:06 AM [facility] AST (SGOT) 18 1 - 40 U/L 10/06/2024 2:06 AM [facility] Alkaline Phosphatase 59 39 - 117 U/L 10/06/2024 2:06 AM [facility] Total Bilirubin 0.8 0.0 - 1.2 mg/dL 10/06/2024 2:06 AM [facility] Globulin 3.3 gm/dL 10/06/2024 2:06 AM [facility] A/G Ratio 1.2 g/dL 10/06/2024 2:06 AM [facility] BUN/Creatinine Ratio 8.3 7.0 - 25.0 10/06/2024 2:06 AM [facility] Anion Gap 10.7 5.0 - 15.0 mmol/L 10/06/2024 2:06 AM [facility] eGFR 70.3 >60.0 mL/min/1.7 3 10/06/2024 2:06 AM [facility] Blood Venipuncture / Unknown 10/05/2024 4:12 PM EDT 10/05/2024 4:12 PM [facility] - 10/06/2024 2:06 AM EDT GFR [...] Callum Cole MD LAB BLOOD ORDERABLES Grecia dion Result [facility]
[address] [place] [address], * Cologuard - Stool, Per Rectum (08/29/2024 1:30 PM EDT) Cologuard Negative Negative 09/05/2024 5:07 AM EDT [facility] (CLIA #:[id number]) Comment: The Cologuard (TM) test was performed on this specimen. NEGATIVE TEST RESULT. A negative Cologuard result indicates a low likelihood that a colorectal cancer (CRC) or advanced adenoma (adenomatous polyps with more advanced pre-malignant features) is present. The chance that a person with a negative Cologuard test has a colorectal cancer is less than 1 in 1500 (negative predictive value >99.9%) or has an advanced adenoma is less than 5.3% (negative predictive value 94.7%). These data are based on a prospective cross-sectional study of 10,000 individuals at average risk for colorectal cancer who were screened with both Cologuard and colonoscopy. (Camacho Linares al, N Engl J Med 2014;370(14):1286- 1297) The normal value (reference range) for this assay is negative. COLOGUARD RE-SCREENING RECOMMENDATION: Periodic colorectal cancer screening is an important part of preventive healthcare for asymptomatic individuals at average risk for colorectal cancer. Following a negative Cologuard result, the [place] Cancer Society and U.S. Multi-Society Task Force screening guidelines recommend a Cologuard re-screening interval of 3 years. References: [place] [employer] Guideline for Colorectal Cancer Screening: https://www.cancer.org/cancer/hiphr-qtokng-vgiils/tohpspmkw-fcrbhvypq-ecyqrwi/ac s-rec ommendations.html.; Jose De Jesus DK, Elena CR, Yuly ParryK, Colorectal Cancer Screening: Recommendations for Physicians and Patients from the U.S. Multi-Society Task Force on Colorectal Cancer Screening , Am J Gastroenterology 2017; 112:8556-3737. TEST DESCRIPTION: Composite algorithmic analysis of stool DNA-biomarkers with hemoglobin immunoassay. Quantitative values of individual biomarkers are not reportable and are not associated with individual biomarker result reference ranges. Cologuard is intended for colorectal cancer screening of adults of either sex, 45 years or older, who are at average-risk for colorectal cancer (CRC). Cologuard has been approved for use by the U.S. FDA. The performance of Cologuard was established in a cross sectional study of average-risk adults aged 50-84. Cologuard performance in patients ages 45 to 49 years was estimated by sub-group analysis of near-age groups. Colonoscopies performed for a positive result may find as the most clinically significant lesion: colorectal cancer [4.0%], advanced adenoma (including sessile serrated polyps greater than or equal to 1cm diameter) [20%] or non- advanced adenoma [31%]; or no colorectal neoplasia [45%]. These estimates are derived from a prospective cross-sectional screening study of 10,000 individuals at average risk for colorectal cancer who were screened with both Cologuard and colonoscopy. (Camacho Steel et al, N Engl J Med 2014;370(14):8984-3749.) Cologuard may produce a false negative or false positive result (no colorectal cancer or precancerous polyp present at colonoscopy follow up). A negative Cologuard test result does not guarantee the absence of CRC or advanced adenoma (pre-cancer). The current Cologuard screening interval is every 3 years. ([place] Cancer Society and U.S. Multi-Society Task Force). Cologuard performance data in a 10,000 patient pivotal study using colonoscopy as the reference method can be accessed at the following location: [email or web address]/results. Additional description of the Cologuard test process, warnings and precautions can be found at www.[employer].com. Stool specimen (specimen) Specimen from rectum / Unknown 08/29/2024 1:30 PM EDT 08/30/2024 3:04 PM EDT Anthony Chan MD BODY FLUIDS AND STOOLS O RDERABLES Final Result [facility] (CLIA #:[id number]) [place] [address], from Last 3 Months Insurance [facility] Medicare [employer] PPO Advance Directives Documents on File Type Date Recorded Patient Director Education Expl anation POWER OF GAS MASK ASSEMBLER - SCAN 06/09/2022 9:25 AM REVOCATION OF POWER OF GAS MASK ASSEMBLER, [facility], 06/02/2022 Care Teams Wiping Cloth Cutter Relationship Specialty Start Date End Date Anthony Chan MD PCP - General Family Medicine 08/04/16
--- OUTSIDE RECORDS SUMMARY | 2024-11-22 22:20 | XMS_ITS ---
Laboratory report Created on: October 13, 2024 CRUZEVI AMOS : [id number] Sex: Male Author Name KENNEY ALCAZAR [facility] Unknown PROBLEMS Problems List Code Description E23.0 RESULTS Laboratory Orders Date Order Code Test 2024-10-05 [id number] TESTOSTERONE EMMANUEL E MS/DIALYSIS Laboratory Results Date LOINC Test Value Unit Reference Range Interpre tation 2024-10-05 2986-8 TESTOSTERONE, TOTAL 422 NG/DL 2024-10-05 90839-9 % FREE TESTOSTER ONE (DIALYSIS) 1.8 % 2024-10-05 2991-8 FREE TESTOSTERON E, SERUM 76 PG/ML
--- OUTSIDE RECORDS SUMMARY | 2024-11-22 22:20 | XMS_ITS | Encounter Summary ---
[facility] Address [address] [place] [address] Care Team Providers Care Director Fraud Name Role Phone Anthony Chan MD Primary Care Provider + Encounter Details Date Type Department Care Team (Late st Contact Info) Description 08/22/[address] [facility] [address] [place] [address] Anthony Chan MD [address] [place] [address] Acute URI; COVID-19 virus infection Social History Tobacco Use Types Packs/Day Years Used Date Smoking Tobacco: Never Smokeless Tobacco: Never Alcohol Use Standard Drinks/Week Comments No 0 (1 standard drink = 0.6 oz pur e alcohol) PHQ-2 Answer Date Recorded Retired PHQ-9: Brief Depression Severity Measure Score 0 05/20/2022 PHQ-2 Answer Date Recorded Retired PHQ-9: Brief Depression Severity Measure Score 0 05/20/2022 Sex and Gender Information Value Date Recorded Sex Assigned at Not on file Legal Sex Male 1:19 PM EDT Gender Identity Not on file Sexual Orientation Not on file documented as of this encounter Miscellaneous Notes * Telephone Encounter - Niels Reynolds RegSched Rep - 08/22/2022 1:20 PM EDT Caller: [facility] - [address] [phone] [facility] [phone] FX Relationship: Pharmacy Best call back number: [phone] Requested Prescriptions: Requested Prescriptions Pending Prescriptions Disp Refills Nirmatrelvir&Ritonavir 300/100 (PAXLOVID) 20 x 150 MG & 10 x 100MG tablet therapy pack tablet 30 tablet 0 Sig: Take 3 tablets by mouth 2 (Two) Times a Day. Indications: COVID-19 Confirmed Infection Pharmacy where request should be sent: [facility] - [place], [place] - [address] [phone] [facility] [phone] Last office visit with prescribing clinician: 08/22/2022 Last telemedicine visit with prescribing clinician: Visit date not found Next office visit with prescribing clinician: 02/17/2023 Additional details provided by patient: PHARMACY CALLING TO VERIFY THAT PATIENT EGFR>60 AND THATHE IS NOT ON ANY THINNERS PATIENT DOESN'T HAVE OTHER SCRIPTS THERE SO THEY DONT HAVE INFORMATION ON HIM Does the patient have less than a 3 day supply: [x] Yes [] No Would you like a call back once the refill request has been completed: [] Yes [] No If the office needs to give you a call back, can they leave a voicemail: [] Yes [] No [place] 08/22/22 13:20 EDT documented in this encounter Plan of Treatment Upcoming Encounters Date Type Department Care Team (Late st Contact Info) Description 02/27/2025 10:00 AM EST Office Visit [facility] [address] [facility] [place] [phone] Anthony Chan MD [address] [place] [address] 06/02/2025 11:30 AM EST Office Visit [facility] [address] [address] Callum Cole MD [address] [address] documented as of this encounter Visit Diagnoses Diagnosis Acute URI Acute upper respiratory infections of unspecified site COVID-19 virus infection documented in this encounter Additional Health Concerns Infection Onset Date Last Indicated Resolved Time COVID (confirmed) 08/22/2022 08/22/2022 11/20/2022 9:08 PM EDT documented as of this encounter Care Teams Director Fraud Relationship Specialty Start Date End Date Anthony Chan MD PCP - General Family Medicine 08/04/16 documented as of this encounter
--- OUTSIDE RECORDS SUMMARY | 2024-11-22 22:20 | XMS_ITS | Encounter Summary ---
[facility] [address] [place] [id number] Care Team Providers Care Numerical Control Nesting Operator Name Role Phone Anthony Chan MD Primary Care Provider + Encounter Details Date Type Department Care Team (Late Contact Info) Description 09/05/2024 Results Follow-Up [facility] [address] [place] [address] Anthony Chan MD [address] [place] [address] Social History Tobacco Use Types Packs/Day Years [...] on file documented as of this encounter Plan of Treatment Upcoming Encounters Date Type Department Care Team ([facility] Contact Info) Description 02/27/2025 10:00 AM EST Office Visit [facility] [address] [place] [address] Anthony Chan MD [address] [place] [address] 06/02/2025 11:30 AM EST Office Visit [facility] [address] [phone] Callum Cole MD [address] [phone] documented as of this encounter Visit Diagnoses Not on filedocumented in this encounter Additional Health Concerns Assessment Noted Time PHQ-2 Depression Total Score: 1 08/18/19 24 9:57 AM EDT documented as of this encounter Care Teams Numerical Control Nesting Operator Relationship Specialty Start Date End Date Anthony Chan MD PCP - General Family Medicine 08/04/16 documented as of this encounter
--- OUTSIDE RECORDS SUMMARY | 2024-11-22 22:20 | XMS_ITS | Encounter Summary ---
[facility] [address] [place] [address] Care Team Providers Care Orchid Transplanter Name Role Phone Anthony Chan MD Primary Care Provider + Encounter Details Date Type Department Care Team (Late Contact Info) Description 10/06/2024 Results Follow-Up [facility] [address] [phone] Callum Cole MD [address] [phone] Social History Tobacco Use Types Packs/Day Years [...] Upcoming Encounters Date Type Department Care Team ([facility] Contact Info) Description 02/27/2025 10:00 AM EST Office Visit [facility] [address] [place] [address] Anthony Chan MD 210 [facility] [place] [address] 06/02/2025 11:30 AM EST Office Visit [facility] [address] [phone] Callum Cole MD [address] [address] documented as of this encounter Visit Diagnoses Not on filedocumented in this encounter Additional Health Concerns Assessment Noted Time PHQ-2 Depression Total Score: 1 08/18/19 24 9:57 AM EDT documented as of this encounter Care Teams Orchid Transplanter Relationship Specialty Start Date End Date Anthony Chan MD PCP - General Family Medicine 08/04/16 documented as of this encounter
--- OUTSIDE RECORDS SUMMARY | 2024-11-22 22:20 | XMS_ITS ---
Laboratory report Created on: October 15, 2024 CRUZEVI YBARRA : 1950 Sex: Male Author Name KENNEY ALCAZAR [facility] Unknown PROBLEMS Problems List Code Description E23.0 RESULTS Laboratory Orders Date Order Code Test 2024-10-05 [id number] IGF-1 Laboratory Results Date LOINC Test Value Unit Reference Range [facility] tation 2024-10-05 2484-4 INSULIN-LIKE MYRA WTH FACTOR I 38 NG/ML [id number] L
--- OUTSIDE RECORDS SUMMARY | 2024-11-22 22:20 | XMS_ITS | Encounter Summary ---
[facility] Address [address] [place] [address] Care Team Providers Care Dry Heat Room Attendant Name Role Phone Anthony Chan MD Primary Care Provider + Encounter Details Date Type Department Care Team (Latest Contact Info) Description 10/05/2024 Travel Social History Tobacco Use Types Packs/Day Years [...] Description 02/27/2025 10:00 AM EST Office Visit [facility] [address] [place] [address] Anthony Chan MD [address] [place] [address] 06/02/2025 11:30 AM EST Office Visit [facility] [address] [facility] [address] [place] [phone] Callum Cole MD [address] [facility] [address] [place] [id number] documented as of this encounter Visit Diagnoses Not on filedocumented in this encounter Additional Health Concerns Assessment Noted Time PHQ-2 Depression Total Score: 1 08/18/19 24 9:57 AM EDT documented as of this encounter Care Teams Dry Heat Room Attendant Relationship Specialty Start Date End Date Anthony Chan MD PCP - General Family Medicine 08/04/16 documented as of this encounter
--- OUTSIDE RECORDS SUMMARY | 2024-11-22 22:20 | XMS_ITS | Encounter Summary ---
[facility] Address [address] [place] [address] Care Team Providers Care Launch Commander [employer] Name Role Phone Anthony Chan MD Primary Care Provider + Encounter Details Date Type Department Care Team ([facility] st Contact Info) Description 10/17/2024 Telephone [facility] [address] [phone] Callum Cole MD [address] [id number] Social History Tobacco Use Types Packs/Day Years [...] Miscellaneous Notes * Telephone Encounter - Ron Taylor, VALERIE - 10/17/2024 1:51 PM EDT Patient came into office needing help getting in contact with [facility] for his Levothyroxinerx. He states he has tried reaching out to them multiple times and cannot get a senior customer service representative to call him back or answer. He requested us reach out to [facility] to see if they have filled his Levothyroxine. Patient called around ~[phone] stating that the shipment of his levothyroxine has came in. documented in this encounter Plan of Treatment Upcoming Encounters Date Type Department Care Team (Late st Contact Info) Description 02/27/2025 10:00 AM EST Office Visit [facility] [address] [place] [address] Anthony Chan MD [address] [place] [address] 06/02/2025 11:30 AM EST Office Visit [facility] [address] [address] Callum Cole MD [address] [address] documented as of this encounter Visit Diagnoses Not on filedocumented in this encounter Additional Health Concerns Assessment Noted Time PHQ-2 Depression Total Score: 1 08/18/19 24 9:57 AM EDT documented as of this encounter Care Teams Launch Commander [employer] Relationship Specialty Start Date End Date Anthony Chan MD PCP - General Family Medicine 08/04/16 documented as of this encounter
--- NOTE | 2024-11-22 22:23 | HMH.EDGENADL ---
Discharge Plan Disposition Patient Disposition: Home, Self-Care Condition: Good Prescriptions Prescriptions: No Action testosterone 30 mg/actuation (1.5 mL) solution in metered pump w/juan 3 applic TOPICAL DAILY hydrocortisone 10 mg tablet 10 mg PO TID aspirin [Adult Aspirin Regimen] 81 mg tablet,delayed release (DR/EC) 81 mg PO DAILY levothyroxine 75 mcg capsule 75 mcg PO DAILY levetiracetam 750 mg tablet 750 mg PO BID Referrals Follow up/Referrals: Anthony Chan MD [Primary Care Provider, Medical] - See instructions Activity Restrictions/Add. Instructions Additional Instructions/Restrictions: You can put some pressure on your gums if needed. You are okay to wear your BiPAP mask tonight. Call your dentist tomorrow if you continue to have bleeding or return to the ER if you are concerned. Clinical Impressions Clinical Impression: Bleeding gums Print Language Print Language: Armenian Discharge ED Provider: Erin Aleman Adult HPI General Chief complaint: Dental/Oral Stated complaint: pulled tooth still bleeding Time Seen by Provider: 11/22/24 22:23 History of Present Illness HPI narrative: Patient is an otherwise healthy 74-year-old male who presented to the emergency department with gum bleeding. Patient recently had some teeth pulled this morning and patient is reporting some gum bleeding. Patient states that she wears a BiPAP mask at night and was concerned and that his dental clinic is no longer open which is what brought him to the emergency department. Patient states that he does typically take a daily aspirin but has not been taking this for several days given his oral surgery. Patient has no other significant medical problems. Related Data Home Medications ?Medication ?Instructions ?Recorded ?Confirmed levothyroxine 75 mcg capsule 75 mcg PO DAILY 11/10/17 04/22/23 aspirin 81 mg tablet,delayed 81 mg PO DAILY 11/20/20 04/22/23 release (Adult Aspirin Regimen) hydrocortisone 10 mg tablet 10 mg PO TID 11/20/20 04/22/23 testosterone 30 mg/actuation (1.5 3 applic topical DAILY 11/20/20 04/22/23 mL) transderm solution metered pump levetiracetam 750 mg tablet 750 mg PO BID 10/09/21 04/22/23 Allergies Allergy/AdvReac Type Severity Reaction Status Date / Time No Known Allergies Allergy Verified 12/03/21 15:41 [facility] Disclaimer: The information contained in this section may have been updated after the patient was seen, as this information can be updated by other users. Medical History (Updated 11/22/24 @ 23:19 by Erin Aleman DO) BPH (benign prostatic hyperplasia) BPH (benign prostatic hyperplasia) Social History Smoking Status: Never smoker alcohol intake: never substance use type: denies use current occupational status: retired Travel in the last 8 weeks?: None household members: spouse housing: house Have you lived/traveled outside US in past 30 days?: No Contact w/someone who lives/traveled outside US past 30 days?: No Exposure to someone with infectious disease in past 14 days?: No Do you have a fever (greater than 100.4 F or 38 C)?: No Have you tested positive for COVID-19?: No Exposed to someone with COVID-19 in past 14 days?: No Do you have a sore throat?: No Do you have a cough?: No Do you have any weakness?: No Do you have any diarrhea?: No Are you experiencing any unusual bleeding?: No Do you have any muscle aches/pain?: No Do you have any abdominal pain?: No Are you experiencing loss of taste or smell?: No Other Medical History Have you received the Flu Vaccine for this season: No Have you received the Pneumonia Vaccine: No ROS Obtained: Yes All systems reviewed & no additional complaints except as documented and Yes Systems reviewed as appropriate & no additional complaints except as documented Physical Exam General General appearance: alert and in no apparent distress Head Head exam: atraumatic, normocephalic and normal inspection Eye Eye exam: Present normal appearance, PERRL and EOMI; Absent scleral icterus ENT ENT exam: Present normal exam, normal external ear exam and other (Right lower teeth, two missing with one stitch in place, mild gum bleeding. ) Neck Neck exam: Present normal inspection and full ROM Chest Chest inspection: Present normal inspection and symmetric chest wall rise Respiratory Respiratory exam: Present normal lung sounds bilaterally; Absent respiratory distress or wheezes Cardiovascular Cardiovascular exam: Present regular rate, normal rhythm and normal heart sounds Abdominal Exam Abdominal exam: Present soft and distention; Absent tenderness, guarding or rebound Extremities Exam Extremities exam: Present normal inspection and full ROM Back Exam Back exam: Present normal inspection and full ROM Neurological Exam Neurological exam: Present alert and oriented X3 Psychiatric Psychiatric exam: Present normal affect and normal mood Skin Skin exam: Present warm and dry Medical Decision Making Medical Records Medical records reviewed: Yes I reviewed the patient's medical records. Screening: Per USPSTF and CDC recommendations, given the prevalence of disease in our region, it is our hospital?s policy to screen for HIV and viral Hepatitis for all patients aged 18 and over and those with ongoing risk factors. Dinesh Inquiry Pt receiving controlled substance: No Vital Signs: 11/22/24 22:24 11/22/24 22:30 11/22/24 22:35 Temperature 98.9 F Temperature Source Oral Pulse Rate 65 74 Pulse Rate [Radial] 73 Respiratory Rate 16 Blood Pressure 152/75 H 138/82 Blood Pressure [Right Arm] 149/89 H Blood Pressure Mean Blood Pressure Mean [Right Arm] 109 Blood Pressure Position Blood Pressure Position [Right Arm] Sitting 02 Sat by Pulse Oximetry 96 95 94 L Oxygen Delivery Method Room Air 11/22/24 22:41 11/22/24 22:50 11/22/24 22:56 Temperature Temperature Source Pulse Rate 70 70 71 Pulse Rate [Radial] Respiratory Rate Blood Pressure 148/83 H 137/87 153/91 H Blood Pressure [Right Arm] Blood Pressure Mean Blood Pressure Mean [Right Arm] Blood Pressure Position Blood Pressure Position [Right Arm] 02 Sat by Pulse Oximetry 93 L 93 L 92 L Oxygen Delivery Method 11/22/24 23:05 11/22/24 23:10 11/22/24 23:15 Temperature 97.6 F Temperature Source Pulse Rate 69 67 Pulse Rate [Radial] Respiratory Rate 16 Blood Pressure 147/79 H 153/81 H 156/84 H Blood Pressure [Right Arm] Blood Pressure Mean 116 Blood Pressure Mean [Right Arm] Blood Pressure Position Blood Pressure Position [Right Arm] 02 Sat by Pulse Oximetry 93 L 93 L Oxygen Delivery Method 11/22/24 23:21 Temperature 97.6 F Temperature Source Oral Pulse Rate 67 Pulse Rate [Radial] Respiratory Rate 16 Blood Pressure 156/84 H Blood Pressure [Right Arm] Blood Pressure Mean Blood Pressure Mean [Right Arm] Blood Pressure Position Supine Blood Pressure Position [Right Arm] 02 Sat by Pulse Oximetry Oxygen Delivery Method Room Air Lab Data Lab results reviewed: Yes I reviewed the patient's lab results. Orders (Tests/Meds): ED MEDICATIONS Discontinued Medications Generic Name Dose Route Start Last Admin Trade Name Celina PRN Reason Stop Dose Admin Tranexamic Acid 10 mg/ Sodium 250.1 mls @ 500.2 mls/hr 11/22/24 22:30 11/22/24 22:50 Chloride TP 11/22/24 22:31 Not Given ONCE ONE Tranexamic Acid 1,000 mg 11/22/24 22:45 11/22/24 22:42 Tranexamic Acid 1,000 Mg/10 Ml Vial TP 11/22/24 22:46 1,000 mg ONCE ONE Administration Medical Decision Narrative: Patient is an otherwise healthy 24-year-old male who presented to the emergency department with gum bleeding. On arrival, patient is hemodynamically stable with unremarkable vital signs. On exam, patient has very mild bleeding of the gums, there is no arterial bleeding, a stitch was in place. Topical TXA was placed onto the gums and stopped for more than 30 minutes. Topical TXA gauze was removed and patient no longer had any bleeding. At this time I felt the patient was appropriate for discharge home. Patient was advised to follow-up with his oral surgeon tomorrow if continued bleeding or return to the emergency department. Patient was otherwise discharged home in stable condition. Critical Care Critical Care Time Critical Care Time: No
[2024-11-22] MEDS: TRANEXAMIC ACID 1,000 MG/10 ML VIAL 1000 MG TP (22:42)
== END 2024-11-22 23:23 | disposition home or self-care (01) ==
PROVIDERS: Emergency Provider Student in an Organized Health Care Education/Training Program; PCP Family Medicine
DX: K06.8 Other specified disorders of gingiva and edentulous alveolar ridge (principal)
CPT/HCPCS: 99283; 99284